=== PATIENT | female | born 1965 | race Caucasian/White ===

== ENCOUNTER 2017-02-12 14:57 | Emergency (ER) | payer OTHER ==
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
== END 2017-02-12 16:00 | disposition home or self-care (01) ==
LOC: CFTX 14:57
DX: M54.16 Radiculopathy, lumbar region (principal); I10 Essential (primary) hypertension
CPT/HCPCS: 72100; 96372; 99283; J1885